=== PATIENT | female | born 1950 | race Hispanic/Latino ===

== ENCOUNTER 2025-02-27 10:00 | Outpatient (RCR) | payer MEDICARE | END 2025-03-01 | LOC: PT 10:00 | PROVIDERS: ATTEND Specialist | DX: M75.102 Unspecified rotator cuff tear or rupture of left shoulder, not specified as traumatic (principal) ==

== ENCOUNTER 2025-05-23 10:59 | Outpatient (RCR) | payer MEDICARE | END 2025-06-01 | LOC: PT 10:59 | PROVIDERS: ATTEND Specialist | DX: M75.102 Unspecified rotator cuff tear or rupture of left shoulder, not specified as traumatic (principal) ==